=== PATIENT | female | born 1970 | race Caucasian/White ===

== ENCOUNTER 2017-10-13 17:24 | Emergency (ER) | payer OTHER ==
[~2017-10-13] VITALS: Ht 157.5 cm; Wt 77.8 kg
[2017-10-13 17:28] VITALS: Ht 157.5 cm; Wt 77.8 kg
[2017-10-13] MEDS ORDERED: KETOROLAC 30 MG INJ IM STA (17:38)
[2017-10-13 18:00] LABS: URINE BLOOD (Dip) POC 2+ (NEGATIVE)
[2017-10-13] MEDS ORDERED: HYDR-906 PO (18:12)
[2017-10-13] MEDS ORDERED: CYCL-319 PO (18:12)
[2017-10-13] MEDS ORDERED: NAPR-260 PO (18:12)
--- NOTE | 2017-10-13 18:57 | ERD ---
ER Documentation Chief Complaint Chief Complaint back pain HPI 46-year-old female complaining of bilateral lower back pain 1 day. Patient denies any traumatic injury. Patient states pain is worse with movement and bending activities. Has a history of UTI and pyelonephritis and feels pain is similar to her previous episode of pyelonephritis. Patient denies any dysuria or urinary frequency. Denies hematuria. Denies abdominal pain. Denies fever. Has not taken medications for her back pain. Denies any numbness or tingling to her extremities. Denies saddle anesthesia or changes to urination or bowel movements. ROS All systems reviewed and are negative except as per history of present illness. Medications Home Meds Active Scripts Naproxen* (Naprosyn*) 500 Mg Tablet, 500 MG PO BID Y for PAIN AND/OR INFLAMMATION, #30 TAB Prov:TAMARA JARAMILLO PA-C 10/13/17 Cyclobenzaprine Hcl* (Cyclobenzaprine Hcl*) 10 Mg Tablet, 10 MG PO TID, #15 TAB Prov:TAMARA JARAMILLO PA-C 10/13/17 Allergies Allergies: Coded Allergies: Penicillins (Verified Allergy, Unknown, 10/13/17) PMhx/Soc History of Surgery: Yes () Anesthesia Reaction: No Hx Neurological Disorder: No Hx Respiratory Disorders: No Hx Cardiac Disorders: No Hx Psychiatric Problems: No Hx Miscellaneous Medical Probl: No Hx Alcohol Use: No Hx Substance Use: No Hx Tobacco Use: No Physical Exam Vitals Vital Signs Date Time Temp Pulse Resp B/P Pulse Ox O2 Delivery O2 Flow Rate FiO2 10/13/17 17:28 98.1 79 18 126/71 99 Physical Exam GENERAL: The patient is well-appearing, well-nourished, in no acute distress CHEST: Clear to auscultation bilaterally. There are no rales, wheezes or rhonchi. HEART: Regular rate and rhythm. No murmurs, clicks, rubs or gallops. No S3 or S4. ABDOMEN:Soft, nontender and nondistended. Good bowel sounds. No rebound or guarding. No gross peritonitis. No gross organomegaly or masses. No Tijerina sign or McBurney point tenderness. BACK: Tenderness palpation bilateral lower paraspinous muscles. No midline tenderness along the lumbar or thoracic gym. No bony step-offs. No CVAT EXTREMITIES: Equal pulses bilaterally. There is no peripheral clubbing, cyanosis or edema. No focal swelling or erythema. Full range of motion. Grossly neurovascularly intact. NEUROLOGIC: Alert and oriented. Cranial nerves II through XII intact. Motor strength in all 4 extremities with 5 out of 5 strength. Sensation grossly intact. Normal speech and gait. Babinski negative. DTR 2+ throughout. SKIN: There is no apparent rash or petechiae. The skin is warm and dry. Results 24 hrs Laboratory Tests Test 10/13/17 17:59 Bedside Urine pH (LAB) 5.5 Bedside Urine Protein (LAB) Negative Bedside Urine Glucose (UA) Negative Bedside Urine Ketones (LAB) Negative Bedside Urine Blood 2+ Bedside Urine Nitrite (LAB) Negative Bedside Urine Leukocyte Esterase (L Negative Current Medications Medications (Trade) Dose Ordered Sig/Ina Route PRN Reason Start Time Stop Time Status Last Admin Dose Admin Ketorolac Tromethamine (Toradol) 30 mg ONCE STAT IM 10/13/17 17:38 10/13/17 17:40 DC 10/13/17 17:59 Procedures/MDM ER course: Urine does not appear to be infected. MDM: 46-year-old male complaining of pain to her bilateral lower back. I have low suspicion for pyelonephritis as patient does not have CVA tenderness and vital signs are stable. Patient's urine does not appear to be infected. I have low suspicion for discitis, epidural abscess, or cauda equina. Patient does not have midline tenderness and vital signs are stable. Patient's lower extremity exam is within normal limits. Patient's pain is localized to the paraspinous muscles of the lumbar region. Patient's pain is more severe with rotational and bending activities. I believe patient's pain is likely musculoskeletal strain. I feel the patient would benefit from muscle relaxers and pain medication. Patient is discharged with strict ER precautions and told to follow-up with primary care within 1-2 days for close evaluation. Patient is told if symptoms change or worsen to return immediately to the emergency room. All questions answered at discharge. Departure Diagnosis: Primary Impression: Back pain Condition: Stable Patient Instructions: Back Pain (Acute Or Chronic) Referrals: COMMUNITY CLINICS YOU HAVE RECEIVED A MEDICAL SCREENING EXAM AND THE RESULTS INDICATE THAT YOU DO NOT HAVE A CONDITION THAT REQUIRES URGENT TREATMENT IN THE EMERGENCY DEPARTMENT. FURTHER EVALUATION AND TREATMENT OF YOUR CONDITION CAN WAIT UNTIL YOU ARE SEEN IN YOUR DOCTORS OFFICE WITHIN THE NEXT 1-2 DAYS. IT IS YOUR RESPONSIBILITY TO MAKE AN APPOINTMENT FOR FOLOW-UP CARE. IF YOU HAVE A PRIMARY DOCTOR --you should call your primary doctor and schedule an appointment IF YOU DO NOT HAVE A PRIMARY DOCTOR YOU CAN CALL OUR PHYSICIAN REFERRAL HOTLINE AT IF YOU CAN NOT AFFORD TO SEE A PHYSICIAN YOU CAN CHOSE FROM THE FOLLOWING [facility] [address] [facility] [address] [facility]. [facility] [address] [facility] [address] [facility] [address] [facility] [facility]. [address] Additional Instructions: FOLLOW UP WITH YOUR PRIMARY CARE PHYSICIAN TOMORROW.Return to this facility if you are not improving as expected. TAMARA JARAMILLO PA-C Oct 13, 2017 18:57
== END 2017-10-13 18:05 | disposition home or self-care (01) ==
LOC: FTE 17:24
DX: M54.5 Low back pain (principal)
CPT/HCPCS: 81003; 96372; 99284; J1885

== ENCOUNTER 2017-12-09 17:32 | Emergency (ER) | END 2017-12-09 18:12 | disposition home or self-care (01) ==

== ENCOUNTER 2018-01-13 15:23 | Emergency (ER) | END 2018-01-13 17:26 | disposition home or self-care (01) ==

== ENCOUNTER 2018-03-20 07:14 | Emergency (ER) | END 2018-03-20 09:16 | disposition home or self-care (01) ==

== ENCOUNTER 2019-06-26 18:45 | Emergency (ER) | payer BC, OTHER ==
[~2019-06-26] VITALS: Ht 165.1 cm; Wt 90.4 kg
[~2019-06-26 18:45] MED LIST: ACET500C5 PO; ALBU8.5H8 INH; AZIT250T PO; CEPH-443 PO; CYCL10TA7 PO; DOCU-144 PO; GUAI-173 PO; IBUP-1542 PO; MED4DP PO; NAPR-985 PO; ONDA4TAB8 PO; ONDA8TAB14 PO; POLY17PO6 PO
[2019-06-26 18:47] VITALS: Ht 165.1 cm; Wt 90.4 kg
[2019-06-26] MEDS ORDERED: KETOROLAC 30 MG INJ IM STA (19:42)
--- NOTE | 2019-06-26 20:22 | ERD ---
ER Documentation Chief Complaint Chief Complaint BIB SELF W/ C/O RT BREAST BUMP AND PAIN X3 DAYS RADIATING TO BACK HPI 48-year-old female presented to the emergency department complaining of right upper back pain and right breast pain intermittently for the past 3 days. She is also noticed a lump in her right breast at the approximate 2 o'clock position. Her pain is moderate to severe. She took no medication for relief of symptoms. She is also having right arm pain which is now resolved. She does report warmth to her right breast. She denies any fevers or chills. She states her last mammogram was approximately 2 years ago. She denies any nausea, vomiting, diarrhea, abdominal pain, or other symptoms at this time. ROS All systems reviewed and are negative except as per history of present illness. Medications Home Meds Active Scripts Cyclobenzaprine Hcl* (Cyclobenzaprine Hcl*) 10 Mg Tablet, 10 MG PO TID, #15 TAB Prov:BREN VIVEROS PA-C 06/26/19 Naproxen* (Naprosyn*) 500 Mg Tablet, 500 MG PO BID PRN for PAIN AND/OR INFLAMMATION, #30 TAB Prov:BREN VIVEROS PA-C 06/26/19 Cephalexin* (Keflex*) 500 Mg Capsule, 500 MG PO QID for 7 Days, CAP Prov:MARIO ALBERTO JACK PA-C 03/20/18 Ondansetron Hcl* (Zofran*) 4 Mg Tablet, 4 MG PO Q6H for NAUSEA AND/OR VOMITING, #30 TAB Prov:MARIO ALBERTO JACK PA-C 03/20/18 Acetaminophen* (Tylophen*) 500 Mg Capsule, 1 CAP PO Q6H PRN for PAIN AND OR ELEVATED TEMP, #30 CAP Prov:MARIO ALBERTO JACK PA-C 03/20/18 Docusate Sodium* (Colace*) 100 Mg Capsule, 100 MG PO TID, #30 CAP Prov:MARIO ALBERTO JACK PA-C 03/20/18 Polyethylene Glycol* (Miralax*) 17 Gm Powd.pack, 17 GM PO DAILY, #30 PACKET Prov:MARIO ALBERTO JACK PA-C 03/20/18 Albuterol Sulfate* (Proair HFA*) 8.5 Gm Hfa.aer.ad, 2 PUFF INH Q4, #1 INHALER Prov:DIONNA NUNEZ 01/13/18 Methylprednisolone* (Medrol* DOSE PACK) 4 Mg/Dose-Pack Tab.ds.pk, 4 MG PO . DI RECTED for 5 Days, PACKET Prov:DIONNA NUNEZ 01/13/18 Ibuprofen* (Motrin*) 600 Mg Tab, 600 MG PO Q6, #30 TAB Prov:DIONNA NUNEZ 01/13/18 Guaifenesin* (Tussin*) 100 Mg/5 Ml Syrup, 200 MG PO Q6 PRN for COUGH for 3 Days, ML Prov:DIONNA NUNEZ 01/13/18 Azithromycin* (Zithromax*) 250 Mg Tablet, 250 MG PO .ZPACK DIRECTED, #6 TAB TAKE 500 MG (2 TABS) THE FIRST DAY THEN 250 MG (1 TAB) DAYS 2-5 Prov:DIONNA NUNEZ 01/13/18 Ondansetron (Ondansetron Odt) 8 Mg Tab.rapdis, 8 MG PO Q6H PRN for NAUSEA AND/OR VOMITING, #8 TAB Prov:LUCINDA ROSEN MD 12/09/17 Naproxen* (Naprosyn*) 500 Mg Tablet, 500 MG PO BID PRN for PAIN AND/OR INFLAMMATION, #30 TAB Prov:TAMARA JARAMILLO PA-C 10/13/17 Cyclobenzaprine Hcl* (Cyclobenzaprine Hcl*) 10 Mg Tablet, 10 MG PO TID, #15 TAB Prov:TAMARA JARAMILLO PA-C 10/13/17 Allergies Allergies: Coded Allergies: Penicillins (Verified Allergy, Unknown, 03/20/18) PMhx/Soc History of Surgery: No (hernia surgery; caesarian section) Anesthesia Reaction: No Hx Neurological Disorder: No Hx Respiratory Disorders: No Hx Cardiac Disorders: No Hx Psychiatric Problems: No Hx Miscellaneous Medical Probl: Yes (kidney stones) Hx Alcohol Use: No Hx Substance Use: No Hx Tobacco Use: No Smoking Status: Never smoker FmHx Family History: No diabetes Physical Exam Vitals Vital Signs Date Temp Pulse Resp B/P (MAP) Pulse Ox O2 O2 Flow FiO2 Time Delivery Rate 06/26/19 97.4 81 20 138/79 97 18:47 (98) Physical Exam Const: No acute distress Head: Atraumatic Eyes: Normal Conjunctiva ENT: Normal External Ears, Nose and Mouth. Neck: Full range of motion. No meningismus. Resp: Clear to auscultation bilaterally Cardio: Regular rate and rhythm, no murmurs Right breast: Firm breast lump with associated tenderness to palpation at the 2 o'clock position. There is no warmth or erythema of the right breast. Skin: No petechiae or rashes Back: No midline or flank tenderness Ext: No cyanosis, or edema Neur: Awake and alert Psych: Normal Mood and Affect Results 24 hrs Laboratory Tests Test 06/26/19 19:58 POC Beta HCG, Qualitative NEGATIVE Current Medications Medications Dose Sig/Ina Start Time Status Last (Trade) Ordered Route PRN Stop Time Admin Dose Reason Admin Ketorolac 30 mg ONCE STAT 06/26/19 DC 06/26/19 Tromethamine IM 19:42 06/26/19 20:05 (Toradol) 19:45 [place] [id number] Radiology Main Line: [phone] DIAGNOSTIC IMAGING REPORT Patient: LUIS ANGEL BECKETT : 1970 Age: 48 Sex: F MR #: [id number] DOS: 06/26/19 0000 Ordering MD: BREN VIVEROS PA-C Location: [facility] Room/Bed: PROCEDURE: Ultrasound breast limited CLINICAL INDICATION: Right breast pain and lump. TECHNIQUE: An ultrasound of the right breast was performed utilizing joy scale and Doppler imaging. COMPARISON: None. FINDINGS: There are possible dilated right breast ducts at 12 o'clock. A 5 mm cyst is identified within the right breast at 9 o'clock. No abnormal right breast vascularity is identified. IMPRESSION: Possible dilated right breast ducts at 12 o'clock. An obstructing intraductal lesion cannot be excluded. Further evaluation with diagnostic mammogram and breast ultrasound is recommended. The patient should also be referred to a breast surgeon for clinical evaluation. 5 mm cyst within the right breast at 9 o'clock, possibly representing mild fibrocystic change. BI-RADS 0: Incomplete RPTAT: HTAR .Jesus Manuel Nelson MD, Date Time Electronically viewed and signed by .Jesus Manuel Nelson MD, on 06/26/2019 21:05 .R/ CC: BREN VIVEROS PA-C [id number] Procedures/MDM 48-year-old female presenting to the emergency department complaining of right breast pain and right upper back pain. She has also noticed some lumps In her right breast. Ultrasound of the right breast revealed 5 mm cyst within the right breast at 9 o'clock, possibly representing mild fibrocystic change.. Patient was explicitly counseled that she will need further follow-up with an [facility] physician for mammogram. No evidence to suggest mastitis, breast abscess, sepsis, surgical abdomen, or other emergent process. Patient will be discharged home in stable condition with instructions to follow-up with [facility] and her primary care physician within the next 24 to 48 hours. Patient should return here immediately for any new or worsening or concerning symptoms. The patient was in agreement with the diagnosis, plan company for follow-up, return precautions. Departure Diagnosis: Primary Impression: Breast pain Condition: Fair Patient Instructions: Breast Mass, Uncertain Cause Additional Instructions: Follow up with your PCP within the next 1-3 days for a repeat evaluation. If you require a referral to a specialist, your Primary Care Provider may be able to provide this for you. In most patient cases, a referral is not required. If you have further questions regarding this matter, please ask your Primary Care Provider. Return the the emergency department immediately if symptoms worsen or change. If you have any questions regarding medications, ask your pharmacist or us before you leave. If any adverse reactions, occur while taking your medications, discontinue the treatment and return to the emergency department immediately. If any new or worsening symptoms, uncontrolled fevers, or other unexplained symptoms occur, return to the emergency department immediately. Take your medications as directed, and complete the entire course of treatment. BREN VIVEROS PA-C Jun 26, 2019 20:21
== END 2019-06-26 22:34 | disposition home or self-care (01) ==
LOC: FTE 18:45 → EEVIPCON 18:45 → FTE 22:34
DX: N64.4 Mastodynia (principal)
CPT/HCPCS: 76642; 81025; 96372; 99285; J1885